=== PATIENT | male | born 1955 | race Caucasian/White ===

== ENCOUNTER → 2019-04-19 | Outpatient (CLI) | payer SELFPAY ==
--- NOTE | 2019-04-19 12:39 | PCVCIMAG ---
APPROVED REPORT Study performed: 04/19/2019 11:42:03 Exam: Stress Echocardiogram Indication: Abnormal EKG Patient Location: Echo lab Stress Nurse: Yudy Wyman RN Status: routine Ht: 6 ft 0 in HR: 60 bpm BP: 114/80 mmHg Rhythm: NSR Procedure The patient underwent an Exercise Stress Test using the Ricky Protocol. Blood pressure, heart rate, and EKG were monitored. An Echocardiogram was performed by integration technician in four stages in quad fashion. At peak stress, four selected images were obtained and placed side by side with resting images for comparison. Stress Test Details Stress Test: Exercise stress testing was performed using a Ricky protocol. HR Resting HR: 60 bpmMax Heart Rate (APMHR): 156 bpm Max HR Achieved: 150 bpmTarget HR (85% APMHR): 132 bpm % of APMHR: 96 Recovery HR: 88 bpm HR response to stress: Normal HR response to stress BP Resting BP: 114/80 mmHg Max BP: 160/76 mmHg Recovery BP: 126/70 mmHg BP response to stress: Normal blood pressure response to stress. ECG Resting ECG: Sinus Bradycardia, RBBB, LAHB Stress ECG: Sinus Bradycardia, RBBB, LAHB ST Change: Normal Maximum ST Deviation: 0 mm Arrhythmia: None Recovery ECG: Sinus Bradycardia, RBBB, LAHB Recovery ST Change: Sinus Bradycardia, RBBB, LAHB Recovery ST Deviation: 0 mm Recovery Arrhythmia: None Clinical Reason for Termination: Maximal effort Stress Symptoms: Dyspnea Exercise duration: 9 min sec Highest Stage Achieved: Stage 3: 3.4 mph at 14% grade. Exercise capacity: 10.10 METs Overall Exercise Capacity for Age: Normal Angina Score: None Stress ECG Conclusion Clinical: Non-ischemic ECG: Non-ischemic Harris Treadmill Score is 9.0 which is Low risk. Pre-Stress Echo The resting Echocardiogram showed normal left ventricular contractility with an estimated Ejection Fraction of about >55%. Normal wall motion in all segments on baseline images. Post-Stress Echo The stress Echocardiogram showed normal left ventricular contractility with an estimated Ejection Fraction of about 60-65%. Normal augmentation of wall motion in all segments on post stress images. Clinical No clinical or ECG evidence for ischemia. Conclusion Clinical Response: Non-ischemic Exercise Capacity: Average Stress ECG Response: Non-ischemic Stress Echo Images: Non-ischemic The left ventricle is normal in size and wall thickness in both the rest and stress images. Trace mitral regurgitation. Mild tricuspid regurgitation. Pulmonary artery pressure is 37mmhg. Normal stress echocardiogram with maximal exercise stress. Other Information Study Quality: Adequate <Conclusion> The left ventricle is normal in size and wall thickness in both the rest and stress images. Trace mitral regurgitation. Mild tricuspid regurgitation. Pulmonary artery pressure is 37mmhg. Normal stress echocardiogram with maximal exercise stress.
== END | disposition home or self-care (01) ==
LOC: PCVCIMAG 11:11
DX: I07.1 Rheumatic tricuspid insufficiency (principal); R94.31 Abnormal electrocardiogram [ECG] [EKG]
CPT/HCPCS: 93325; 93351